=== PATIENT | female | born 1990 | race Native Hawaiian/Other Pacific Islander ===

== ENCOUNTER 2023-01-27 01:24 | Emergency (ER) | payer BC, SELFPAY ==
[2023-01-27] MEDS ORDERED: Cyclobenzaprine 10 MG TAB ONE (01:45)
== END 2023-01-27 01:52 | disposition home or self-care (01) ==
LOC: CSHERS 01:24
DX: M62.830 Muscle spasm of back (principal)
CPT/HCPCS: 99283